=== PATIENT | female | born 2000 | race Caucasian/White ===

== ENCOUNTER → 2021-06-11 13:39 | Outpatient (CLI) | payer BC, SELFPAY ==
--- NOTE | ~2021-06-11 | US_ITS ---
EXAMINATION: US thyroid DATE: 06/11/2021 13:57 INDICATION: Thyroid nodule. TECHNIQUE: Multiple ultrasound images of the thyroid were obtained. COMPARISON: None. FINDINGS: The right thyroid lobe measures 4.5 x 0.9 x 1.3 cm. The left thyroid lobe measures 4.3 x 0.6 x 1.1 c m. In the right thyroid lobe, there is a 3 mm nodule. In the right thyroid lobe, there is a 4 mm nod ule. IMPRESSION: 1. Small thyroid nodules, likely not clinically significant. No follow-up is needed. Reviewed, dictated and finalized at location A. IMPRESSION: 1. Small thyroid nodules, likely not clinically significant. No follow-up is ne eded.
== END ==
PROVIDERS: PCP Nurse Practitioner Family; Visit Provider Nurse Practitioner Family
DX: E04.2 Nontoxic multinodular goiter (principal)
CPT/HCPCS: 76536